=== PATIENT | female | born 2000 | race Hispanic/Latino ===

== ENCOUNTER → 2023-06-25 | Emergency (ER) | payer SELFPAY ==
[2023-06-25 12:07] LABS: Specific Gravity 1.014 (1.005-1.030)
[2023-06-25 12:07] LABS: Absolute Lymphocytes (CBC) 2.1 K/uL (0.7-4.9); Hematocrit 31.4 % (36.0-45.0); Lymphocytes % 24.2 % (15.3-44.8); MCV 76.2 fL (80-100); MPV 7.1 fL (7.6-11.3); Platelets 410 thou/uL (152-406); RBC Red Blood Cell Count 4.12 M/uL (3.86-4.86)
[2023-06-25 12:10] LABS: Specific Gravity 1.014 (1.005-1.030); Urine Bacteria None Seen /HPF (<20); Urine Bilirubin NEGATIVE (Negative); Urine Blood 1+ (Negative); Urine Clarity Extremely Turbid (Clear); Urine Color Light-Yellow (Yellow); Urine Glucose NEGATIVE (Negative); Urine Mucus Slight /HPF (None Seen); Urine Protein NEGATIVE (Negative); Urine RBC <5 /HPF (None Seen); Urine Urobilinogen Normal (Normal); Urine pH 5.5 (5.0-7.0)
--- NOTE | 2023-06-25 12:19 | RAD REPORT ---
EXAM DESCRIPTION: US - Transvaginal OB - 06/25/2023 12:01 pm CLINICAL HISTORY: ABD CRAMPING, COMPARISON: No comparisons FINDINGS: A single gestational sac is seen within the uterus. The shape of the sac is within normal limits for gestational age. Within the sac is a vague small yolk sac. No embryo yet seen. The maternal adnexa and ovaries are within normal limits. Normal Doppler blood flow was demonstrated to both ovaries. IMPRESSION: Small gestational sac is present which may contain a small yolk sac, most compatible wit h early IUP. Recommend follow-up sonography in 10-12 days to monitor development.
[2023-06-25 12:27] LABS: Potassium 3.5 mEq/L (3.5-5.1)
--- NOTE | 2023-06-25 12:49 | ER ---
Nurse's Notes [facility] Name: Bhavna Peters Age: 23 yrs Sex: Female : 2000 Arrival Date: 06/25/2023 Time: 10:20 Bed 15 Private MD: Diagnosis: related conditions, unspecified, first trimester Presentation: 06/25 10:27 Chief complaint: Patient states: STATES FELL LAST WEEK, HAD POSITIVE TEST AND db WANTS TO MAKE SURE EVERYTHING IS OK. Coronavirus screen: Client denies travel out of the [place] in the last 14 days. At this time, the client does not indicate any symptoms associated with coronavirus-19. Ebola Screen: Patient negative for fever greater than or equal to 101.5 degrees Fahrenheit, and additional compatible Ebola Virus Disease symptoms Patient denies exposure to infectious person. Patient denies travel to an Ebola-affected area in the 21 days before illness onset. No symptoms or risks identified at this time. Initial Sepsis Screen: Does the patient meet any 2 criteria? No. Patient's initial sepsis screen is negative. Does the patient have a suspected source of infection? No. Patient's initial sepsis screen is negative. Risk Assessment: Do you want to hurt yourself or someone else? Patient reports no desire to harm self or others. Onset of symptoms was June 25, 2023. 10:27 Method Of Arrival: Ambulatory db 10:27 Acuity: MAN 4 db Triage Assessment: 10:29 General: Appears in no apparent distress. comfortable, Behavior is calm, cooperative. db Pain: Denies pain. Neuro: Level of Consciousness is awake, alert, obeys commands, Oriented to person, place, time, situation. 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 - Social history:: Smoking status: Patient denies any tobacco usage or history of. Screenin:02 [facility] ED Fall Risk Assessment (Adult) History of falling in the last 3 months, cp4 including since admission No falls in past 3 months (0 pts). [facility] ED Fall Risk Assessment (Adult) History of falling in the last 3 months, including since admission Confusion or Disorientation No (0 pts) Intoxicated or Sedated No (0 pts) Impaired Gait No (0 pts) Mobility Assist Device Used No (0 pt) Altered Elimination No (0 pt) Score/Fall Risk Level 0 - 2 = Low Risk Oriented to surroundings, Maintained a safe environment, Educated pt \T\ family on fall prevention, incl call for assistance when getting out of bed, Assessed \T\ reinforced patient's understanding of fall precautions, Hourly rounding (assess needs \T\ fall precautionary measures) done. Abuse screen: Denies threats or abuse. Nutritional screening: No deficits noted. Tuberculosis screening: No symptoms or risk factors identified. Assessment: 12:02 General: Appears in no apparent distress. Behavior is calm, cooperative, appropriate cp4 for age. Pain: Denies pain. Vital Signs: 10:27 BP 143 / 79; Pulse 92; Resp 18; Temp 97.9(O); Pulse Ox 100% ; db 12:24 BP 135 / 83; Pulse 86; Resp 18; Pulse Ox 96% ; cp4 13:32 BP 131 / 81; Pulse 72; Resp 16; Pulse Ox 100% ; cp4 ED Course: 10:22 Patient arrived in ED. rg4 10:23 Brian Sinclair MD is Attending Physician. rt 10:29 Triage completed. db 10:29 Arm band placed on right wrist. db 11:38 Tere Stevens is Primary Nurse. cp4 11:40 US Transvaginal Ob In Process Unspecified. EDMS 12:01 Basic Metabolic Panel Sent. cp4 12:01 CBC with Diff Sent. cp4 12:01 Urinalysis w/ reflexes Sent. cp4 12:01 Quantitative Hcg Sent. cp4 12:01 Test, Urine Sent. cp4 12:02 Placed in gown. Bed in low position. Call light in reach. Side rails up X 1. cp4 12:02 No provider procedures requiring assistance completed. Inserted saline lock: 20 gauge cp4 in right antecubital area, using aseptic technique. Blood collected. 13:32 Provided Education on: . cp4 13:32 intact, bleeding controlled, No redness/swelling at site. Pressure dressing applied. cp4 Administered Medications: No medications were administered Medication: 12:02 VIS not applicable for this client. cp4 Outcome: 12:48 Discharge ordered by . rt 13:32 Discharged to home ambulatory, cp4 13:32 Condition: stable 13:32 Discharge instructions given to patient, Instructed on discharge instructions, follow up and referral plans. Demonstrated understanding of instructions, follow-up care, 13:47 Patient left the ED. ap3 Signatures: Dispatcher [employer] Heaven Mayorga rg4 Bhavna Bennett RN RN ap3 Devorah Coreas RN RN db Brian Sinclair MD MD rt Potter, Christina cp4
--- NOTE | 2023-06-25 12:49 | EDPHYS ---
Physician Documentation [facility] Name: Bhavna Peters Age: 23 yrs Sex: Female : 2000 Arrival Date: 06/25/2023 Time: 10:20 Bed 15 Private MD: ED Physician Brian Sinclair HPI: 06/25 15:23 This 23 yrs old Female presents to ER via Ambulatory with complaints of Fall, rt Unknown Weeks . 15:23 Patient presents to the ED 2 weeks following a fall. Patient states that she missed a rt step, was having some mild back pains since then. Patient states that yesterday, she had 5 positive test and wishes to have the baby checked today. Denies any vaginal bleeding, reports mild lower abdominal cramping, no other aggravating or elevating factors. 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 - Social history:: Smoking status: Patient denies any tobacco usage or history of. ROS: 15:23 Constitutional: Negative for fever, chills, and weight loss, Cardiovascular: Negative rt for chest pain, palpitations, and edema, Respiratory: Negative for shortness of breath, cough, wheezing, and pleuritic chest pain, Abdomen/GI: Negative for abdominal pain, nausea, vomiting, diarrhea, and constipation, MS/Extremity: Negative for injury and deformity, Skin: Negative for injury, rash, and discoloration, Neuro: Negative for headache, weakness, numbness, tingling, and seizure, Psych: Negative for depression, anxiety, suicide ideation, homicidal ideation, and hallucinations, 15:23 Back: Positive for pain at rest, Negative for decreased range of motion, Exam: 15:23 Constitutional: This is a well developed, well nourished patient who is awake, alert, rt and in no acute distress. Head/Face: Normocephalic, atraumatic. Chest/axilla: Normal chest wall appearance and motion. Nontender with no deformity. No lesions are appreciated. Cardiovascular: Regular rate and rhythm with a normal S1 and S2. No gallops, murmurs, or rubs. Normal PMI, no JVD. No pulse deficits. Respiratory: Lungs have equal breath sounds bilaterally, clear to auscultation and percussion. No rales, rhonchi or wheezes noted. No increased work of breathing, no retractions or nasal flaring. Abdomen/GI: Soft, non-tender, with normal bowel sounds. No distension or tympany. No guarding or rebound. No evidence of tenderness throughout. Skin: Warm, dry with normal turgor. Normal color with no rashes, no lesions, and no evidence of cellulitis. MS/ Extremity: Pulses equal, no cyanosis. Neurovascular intact. Full, normal range of motion. Neuro: Awake and alert, GCS 15, oriented to person, place, time, and situation. Cranial nerves II-XII grossly intact. Motor strength 5/5 in all extremities. Sensory grossly intact. Cerebellar exam normal. Normal gait. Psych: Awake, alert, with orientation to person, place and time. Behavior, mood, and affect are within normal limits. Vital Signs: 10:27 BP 143 / 79; Pulse 92; Resp 18; Temp 97.9(O); Pulse Ox 100% ; db 12:24 BP 135 / 83; Pulse 86; Resp 18; Pulse Ox 96% ; cp4 13:32 BP 131 / 81; Pulse 72; Resp 16; Pulse Ox 100% ; cp4 MDM: 10:39 Patient medically screened. rt 15:23 Differential Diagnosis First trimester , mechanical back pain. Data reviewed: rt vital signs, nurses notes, lab test result(s), radiologic studies. Test considered but Not performed: Other Details Benign back examination, do not believe the patient requires x-rays, CT. Counseling: I had a detailed discussion with the patient and/or guardian regarding the historical points, exam findings, and any diagnostic results supporting the discharge/admit diagnosis, lab results, radiology results, the need for outpatient follow up, to return to the emergency department if symptoms worsen or persist or if there are any questions or concerns that arise at home. 06/25 10:44 Order name: Basic Metabolic Panel; Complete Time: 12:40 rt 06/25 10:44 Order name: CBC with Diff; Complete Time: 12:24 rt 06/25 10:44 Order name: Test, Urine; Complete Time: 12:24 rt 06/25 10:44 Order name: Quantitative Hcg; Complete Time: 12:40 rt 06/25 10:44 Order name: Urinalysis w/ reflexes; Complete Time: 12:24 rt 06/25 10:44 Order name: US Transvaginal Ob; Complete Time: 12:24 rt 06/25 10:44 Order name: IV Saline Lock; Complete Time: 12:01 rt 06/25 10:44 Order name: Labs collected and sent; Complete Time: 12:01 rt Administered Medications: No medications were administered Disposition Summary: 06/25/23 12:48 Discharge Ordered Notes: Location: Home rt Problem: new rt Symptoms: have improved rt Condition: Stable rt Diagnosis - related conditions, unspecified, first trimester rt Followup: rt - With: Private Physician - When: 7 - 10 days - Reason: Discharge Instructions: - Discharge Summary Sheet rt - First Trimester of rt Forms: - Medication Reconciliation Form rt - Thank You Letter rt - Antibiotic Education rt - Prescription Opioid Use rt - Patient Portal Instructions rt - Leadership Thank You Letter rt Signatures: Dispatcher [employer] Devorah Alfred RN RN Brian Kimbrough MD MD rt
[2023-06-25 14:15] VITALS: BP 131/81; TEMP 97.9; O2SAT 100
== END ==
LOC: ER 10:20
DX: O26.891 Other specified pregnancy related conditions, first trimester (principal); Z3A.00 Weeks of gestation of pregnancy not specified
CPT/HCPCS: 36415; 76817; 80048; 81001; 81025; 84702; 85025